=== PATIENT | female | born 1960 | race Caucasian/White ===

== ENCOUNTER → 2023-04-09 08:49 | Outpatient (CLI) | payer BC, SELFPAY ==
--- NOTE | 2023-04-09 08:51 | DI.RAD.S_ITS ---
PROCEDURE: FL BARIUM SWALLOW W SPEECH INDICATIONS: TONGUE CANCER / DYSPHAGIA COMPARISON: TECHNIQUE: Examination was conducted in conjunction with speech pathology per standard protocol. In the lateral projection, filming was performed of the patient swallowing. AP projection filming may also be performed with patient swallowing. COMPARISON: [facility], CT, CT SOFT TISSUE NECK WITH CONTRAST, 04/23/2022, 9:53. [facility], CT, CT ABDOMEN PELVIS WITH CONTRAST, 02/15/2023, 14:31. FINDINGS: Function: There is trace laryngeal penetration. Mild pathologic vallecular pooling. Morphology: No cricopharyngeal bar is identified. No cervical esophageal webs. No Zenker's diverticulum. No strictures. IMPRESSION: 1. Trace laryngeal penetration. Please see separate speech pathologist's report. Dictated by: Nitza Clement M.D. on 04/09/2023 at 13:25 Approved by: Nitza Clement M.D. on 04/09/2023 at 13:27
== END ==
LOC: RAD 08:49
PROVIDERS: Family Provider Internal Medicine Hematology & Oncology; PCP Internal Medicine Hematology & Oncology; Referring Provider Internal Medicine Hematology & Oncology; Visit Provider Internal Medicine Hematology & Oncology
DX: C02.9 Malignant neoplasm of tongue, unspecified (principal); R13.10 Dysphagia, unspecified
CPT/HCPCS: 74230

== ENCOUNTER 2023-04-16 09:00 | Outpatient (RCR) | payer BC, OTHER, MEDICAID, SELFPAY ==
--- NOTE | 2023-02-13 08:54 | ST.OPIE ---
Visit Care Team Role Provider Type Alfred Armas MD Attending Provider Physician Family Provider Primary Care Provider Referring Provider Specialty: Oncology Address: [address] [place] [address], [id number] Email: [email or web address] Speech-Language Pathology Initial Evaluation INSTRUCTOR OF SOCIOLOGY Adult Cognitive Linguistic Eval Start: 02/12/23 16:37 Freq: Status: Active Protocol: Document 02/13/23 08:06 RAJAN (Rec: 02/13/23 08:54 MA [id number]) Adult Cognitive Linguistic Evaluation Session Time Visit Start Time 11:45 Visit Stop Time 12:30 Total Visit Minutes 45 Visit Information Visit Number 1 Plan of Care Dates 02/12/23-04/14/22 Insurance Information Medicaid Referral Referring Provider Alfred Armas Reason for Referral Tongue cancer Setting Assessment Location Outpatient Care Visit Type Note Type Initial evaluation Next Note Type Next Note Type Treatment Note Patient Information Identification Type Name Patient History Pt is a 62 year old female seen this date for speech evaluation d/t 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 Oncology hx: About a year ago,December 2021, Pt presented with persisnt pain at the right lateral tongue, associated with otaglgia, speech and swallow difficulties, weight loss and developed right upper cervical lymphadenopathy. 01/05/22 Pt had right lateral tongue incisional biopsy- VM: invasive squamous cell carcinoma, well to moderately differentiated. 01/25/22 PET- CT: right FOM SUV 8.5 extending posteriorly and inferiorly and continuous with activity associated with 2.6 cm right level 1B node. There was adjacent right level 2A node 0.9 cm SUV 3.8, and 1/2cm left level 3 node SUV 5.1. No distant mets. 02/21/22 right partial glossectomy, right MND with [place], Dr. Sheila Del Rio ( left cervical lymphadenectomy was not done). Pt had radiation and chemo from -08/01/22. Pt reports she is in remission based on PET scan completed on 01/01/23. Pt with PMHx significant for: HTN, GERD. Pt lives with her . 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 Hearing Hearing Level Normal Vision Vision Status Not Impaired Previous Therapy Previous Speech-Language Therapy Yes History of Therapy Pt reports she received outpatient speech therapy at [facility]. However, reports she felt she was not making improvements and would like to do therapy closer to home. Subjective Patient Report Pt reports she would like to improve speech so she can do her job better as a customer experience manager d/t Pt having to talk 7-8 hours a day. Pt reports goal is to speak right. Pt states she practices tongue twisters and oral motor exercises when she thinks about it. She reports most difficulties producing words that begin with /s/. Pt reports most of her friends can understand her, however she does not think she sounds the same and her reports he can't understand her. Pt also reports difficulties with dry mouth. 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 Mental Status Alert,Responsive,Cooperative Assessment Oral Motor Examination Completed Yes Results Oral motor exam completed at time of evaluation. Pt with full dentures, however reports she only wears upper d/t increase speaking difficulties when wearing lowers. Pt WFL facial symmetry, reduced lingual protrusion, strength and ROM, WFL labial strength and ROM. Informal Assessment Receptive Language Normal Yes Expressive Language Normal Yes Pragmatic Language Normal Yes Speech Normal No Speech Impairment(s) Imprecise articulation Cognition Normal Yes Formal Assessment Results ST adminsitered Voice Handicap Index-10 (VHI-10) in order to assess Pt perceptions of speech. ST informed Pt to score VHI-10 with how she believes her speech sounds vs. voice and educated Pt on difference. Pt scored a total 43 indicating a severity rating of moderate. Pt scored the highest in the motional category in regards to speech perceptions and the lowest in functional. Pt reports she feels her speech makes her feel handicapped. and that her voice feels creaky and dry. Pt speech characterized by mis -articulations, specifically with /s/ and /c/ speech sounds which are produced with lisp/ slur. Pt appears about 95% intelligible. Findings/Results Findings Pt presents with mild-mod dysarthria R47.1. Pt with reduced lingual strength, protrusion and ROM impacting speech intelligibility. Pt with most difficulties producing words that being with /s/. Cognitive Communication Deficits Self-awareness of Cognitive- Predictive awareness (able to Communication Deficits predict problem; impact of impairments) Plan of Care Speech-Language Treatment Yes Frequency 1x/week Duration 8 weeks Patient/Caregiver Education Described results of evaluation,Patient expressed understanding of evaluation, Patient expressed agreement with goals and treatment plans Short Term Goals STG 1: Pt will participate in oral motor speech tasks to improve lingual and labial strength, ROM and motility for articulation with min cues. STG 2: Pt will articulate the sound of /s/ in all positions of words at the word/phrase/ sentence level with 80% accuracy independently. STG 3: Pt will utilize compensatory strategies of over articulation independently. STG 4:Pt will demonstrate speech intelligibility of about 100% in conversational speech. Director Of Public Relations Goals LTG 1:Pt will improve intelligibility of speech for functional communication.
--- NOTE | 2023-02-13 08:55 | ST.OPPOC ---
Physical, Occupational & Speech Therapy At 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 Oncology hx: About a year ago,December 2021, Pt presented with persisnt pain at the right lateral tongue, associated with otaglgia, speech and swallow difficulties, weight loss and developed right upper cervical lymphadenopathy. 01/05/22 Pt had right lateral tongue incisional biopsy- VM: invasive squamous cell carcinoma, well to moderately differentiated. 01/25/22 PET- CT: right FOM SUV 8.5 extending posteriorly and inferiorly and continuous with activity associated with 2.6 cm right level 1B node. There was adjacent right level 2A node 0.9 cm SUV 3.8, and 1/2cm left level 3 node SUV 5.1. No distant mets. 02/21/22 right partial glossectomy, right MND with [place], Dr. Sheila Del Rio (left cervical lymphadenectomy was not done) . Pt had radiation and chemo from 05/15/22-08/01/22 . Pt reports she is in remission based on PET scan completed on 01/01/23. Pt with PMHx significant for: HTN, GERD. Pt lives with her . 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 Self-awareness of Cognitive- Predictive awareness (abl Communication Deficits Short Term Goals STG 1: Pt will participate in oral motor speech tasks to improve lingual and labial strength, ROM and motility for articulation with min cues. STG 2: Pt will articulate the sound of /s/ in all positions of words at the word/phrase/ sentence level with 80% accuracy independently. STG 3: Pt will utilize compensatory strategies of over articulation independently. STG 4:Pt will demonstrate speech intelligibility of about 100% in conversational speech. Snf Goals LTG 1:Pt will improve intelligibility of speech for functional communication. Comment: Electronically Signed by: ROBERT Gale 02/13/23 0855 If you are in agreement with this Plan of Care, please return a signed and dated copy. I have reviewed this Plan of Care and certify that the skilled therapy services above are required to meet the patient?s needs. Physician Signature Date Printed Name and Credentials Clinical Instructor Signature Printed Name and Credentials
--- NOTE | 2023-02-27 17:27 | ST.OPTN ---
Visit Care Team Role Provider Type Alfred Armas MD Attending Provider Physician Family Provider Primary Care Provider Referring Provider Address: [address] [place] [address], [place], [address] HEEL COVERER MACHINE OPERATOR Treatment Note HEEL COVERER MACHINE OPERATOR Treatment Note Start: 02/27/23 17:03 Freq: Status: Active Protocol: Document 02/27/23 17:17 MA (Rec: 02/27/23 17:27 MA [id number]) Speech Pathology Treatment Note Session Time Visit Start Time 16:43 Visit Stop Time 17:30 Total Visit Minutes 47 Visit Information Visit Number 2 Plan of Care Dates 02/12/23-04/14/22 Setting Treatment Setting Outpatient Care Next Note Type Next Note Type Treatment Note General Information Patient History Pt is a 62 year old female seen this date for speech evaluation d/t 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 Oncology hx: About a year ago,December 2021, Pt presented with persisnt pain at the right lateral tongue, associated with otaglgia, speech and swallow difficulties, weight loss and developed right upper cervical lymphadenopathy. 01/05/22 Pt had right lateral tongue incisional biopsy- VM: invasive squamous cell carcinoma, well to moderately differentiated. 01/25/22 PET- CT: right FOM SUV 8.5 extending posteriorly and inferiorly and continuous with activity associated with 2.6 cm right level 1B node. There was adjacent right level 2A node 0.9 cm SUV 3.8, and 1/2cm left level 3 node SUV 5.1. No distant mets. 02/21/22 right partial glossectomy, right MND with [place], Dr. Sheila Del Rio ( left cervical lymphadenectomy was not done). Pt had radiation and chemo from -08/01/22. Pt reports she is in remission based on PET scan completed on 01/01/23. Pt with PMHx significant for: HTN, GERD. Pt lives with her . 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 Subjective Observations/Patient Presentation Pt arrived to therapy 13 minutes late d/t driving past facility. Objective Short Term Goals STG 1: Pt will participate in oral motor speech tasks to improve lingual and labial strength, ROM and motility for articulation with min cues. STG 2: Pt will articulate the sound of /s/ in all positions of words at the word/phrase/ sentence level with 80% accuracy independently. STG 3: Pt will utilize compensatory strategies of over articulation independently. STG 4:Pt will demonstrate speech intelligibility of about 100% in conversational speech. Fdc Goals LTG 1:Pt will improve intelligibility of speech for functional communication. Treatment Activities See below Assessment Assessment of Improvement Pt wore bottom dentures and reports she is trying to wear them more often in order to get used to speaking with them in. Pt reports she likes the way her face looks when she has them in. Pt with reduced speech intelligibility with bottoms dentures in, at about 85-90%. Pt reports she can only wear dentures for a few hours at a time d/t increase in neuropathy. Pt reports she practices oral motor exercises and tongue twisters at home taught by previous ST. Pt reports she will be returning to work tomorrow as a customer retention specialist where she will be talking most of the day. Pt reports she is ready but nervous. ST educated Pt on dysarthria speaking strategies to practice at home, as well as talking to customers on the phone at work, such as slow rate and over articulating. ST provided several education handouts for Pt to utilize at home and practice such as oral motor exercises, speaking strategies, functional phrases , and /th/ and /s/ words/ sentences. Reviewed with Patient Home Exercise Program
--- NOTE | 2023-03-12 16:14 | ST.OPTN ---
Visit Care Team Role Provider Type Alfred Armas MD Attending Provider Physician Family Provider Primary Care Provider Referring Provider Address: [address] [place] [address], [place], [address] TECHNOLOGY ASSISTANT Treatment Note TECHNOLOGY ASSISTANT Treatment Note Start: 02/27/23 17:03 Freq: Status: Active Protocol: Document 03/12/23 16:07 MA (Rec: 03/12/23 16:13 MA [id number]) Speech Pathology Treatment Note Session Time Visit Start Time 11:40 Visit Stop Time 12:20 Total Visit Minutes 40 Visit Information Visit Number 3 Plan of Care Dates 02/12/23-04/14/22 Setting Treatment Setting Outpatient Care Next Note Type Next Note Type Treatment Note General Information Patient History Pt is a 62 year old female seen this date for speech evaluation d/t 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 Oncology hx: About a year ago,December 2021, Pt presented with persisnt pain at the right lateral tongue, associated with otaglgia, speech and swallow difficulties, weight loss and developed right upper cervical lymphadenopathy. 01/05/22 Pt had right lateral tongue incisional biopsy- VM: invasive squamous cell carcinoma, well to moderately differentiated. 01/25/22 PET- CT: right FOM SUV 8.5 extending posteriorly and inferiorly and continuous with activity associated with 2.6 cm right level 1B node. There was adjacent right level 2A node 0.9 cm SUV 3.8, and 1/2cm left level 3 node SUV 5.1. No distant mets. 02/21/22 right partial glossectomy, right MND with [place], Dr. Sheila Del Rio ( left cervical lymphadenectomy was not done). Pt had radiation and chemo from -08/01/22. Pt reports she is in remission based on PET scan completed on 01/01/23. Pt with PMHx significant for: HTN, GERD. Pt lives with her . 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 Objective Short Term Goals STG 1: Pt will participate in oral motor speech tasks to improve lingual and labial strength, ROM and motility for articulation with min cues. STG 2: Pt will articulate the sound of /s/ in all positions of words at the word/phrase/ sentence level with 80% accuracy independently. STG 3: Pt will utilize compensatory strategies of over articulation independently. STG 4:Pt will demonstrate speech intelligibility of about 100% in conversational speech. Correction Goals LTG 1:Pt will improve intelligibility of speech for functional communication. Treatment Activities See below Assessment Assessment of Improvement Pt reported she did homework, which consisted on speaking and oral motor exercises. Pt repots difficulties producing str words. Pt wore full dentures to session. Pt reports friends and family have told her she sounds better. Pt also reports she will start talking on the phones at work on / Saturday this week where she is a customer experience consultant for [employer]. Pt reported she was nervous, however will utilize strategies taught in sessions, such as over articulation and slow rate. ST recommended Pt put a visual card on desk with speaking strategies written on them as reminders. ST assessed speech intelligibility and use of speaking strategies, specifically slow rate and over articulation with use of customer service scripts in order to promote carryover. Pt appeared about 100% intellgible with occasionally slurred speech. Pt benefited from mild cues to utilize over articulation. ST encouraged Pt to continue oral motor exercises and speaking exercises at home. Reviewed with Patient Home Exercise Program
--- NOTE | 2023-03-21 15:21 | ST.OPTN ---
Visit Care Team Role Provider Type Alfred Armas MD Attending Provider Physician Family Provider Primary Care Provider Referring Provider Address: [address] [place] [address], [place], [address] LEAN MANUFACTURING SPECIALIST Treatment Note LEAN MANUFACTURING SPECIALIST Treatment Note Start: 02/27/23 17:03 Freq: Status: Active Protocol: Document 03/21/23 15:08 MA (Rec: 03/21/23 15:21 MA [id number]) Speech Pathology Treatment Note Session Time Visit Start Time 14:35 Visit Stop Time 15:15 Total Visit Minutes 40 Visit Information Visit Number 4 Plan of Care Dates 02/12/23-04/14/22 Setting Treatment Setting Outpatient Care Next Note Type Next Note Type Treatment Note General Information Patient History Pt is a 62 year old female seen this date for speech evaluation d/t 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 Oncology hx: About a year ago,December 2021, Pt presented with persisnt pain at the right lateral tongue, associated with otaglgia, speech and swallow difficulties, weight loss and developed right upper cervical lymphadenopathy. 01/05/22 Pt had right lateral tongue incisional biopsy- VM: invasive squamous cell carcinoma, well to moderately differentiated. 01/25/22 PET- CT: right FOM SUV 8.5 extending posteriorly and inferiorly and continuous with activity associated with 2.6 cm right level 1B node. There was adjacent right level 2A node 0.9 cm SUV 3.8, and 1/2cm left level 3 node SUV 5.1. No distant mets. 02/21/22 right partial glossectomy, right MND with [place], Dr. Sheila Del Rio ( left cervical lymphadenectomy was not done). Pt had radiation and chemo from -08/01/22. Pt reports she is in remission based on PET scan completed on 01/01/23. Pt with PMHx significant for: HTN, GERD. Pt lives with her . 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 Subjective Observations/Patient Presentation Pt arrived to therapy about 5 minutes late d/t coming from work. Objective Short Term Goals STG 1: Pt will participate in oral motor speech tasks to improve lingual and labial strength, ROM and motility for articulation with min cues. STG 2: Pt will articulate the sound of /s/ in all positions of words at the word/phrase/ sentence level with 80% accuracy independently. STG 3: Pt will utilize compensatory strategies of over articulation independently. STG 4:Pt will demonstrate speech intelligibility of about 100% in conversational speech. Alf Goals LTG 1:Pt will improve intelligibility of speech for functional communication. Assessment Assessment of Improvement Pt reported she did homework, which consisted on speaking and oral motor exercises. She reports she has not started talking on the phones at work yet. She also reported she started taking 1800mg of gabapentin which is causing her dizziness. ST recommended Pt talk with doctor about gabapentin dose and dizziness. Pt with dentures in. She reports she has been practicing speaking exercises and oral motor exercises. Pt appeared 100% intelligible, however slight slurring. Pt completed 10 reps of oral motor exercises independently. Pt reports difficulties with swallowing and that her doctor sent over a referral yesterday for a swallow xray. ST communicated with radiology who did not yet receive an order. ST called Pt PCP who faxed order to radiology fax provided. ST to monitor when Pt has a MBSS scheduled and then proceed going forward with swallow therapy depending on results. Reviewed with Patient Home Exercise Program
--- NOTE | 2023-03-26 17:07 | ST.OPTN ---
Visit Care Team Role Provider Type Alfred Armas MD Attending Provider Physician Family Provider Primary Care Provider Referring Provider Address: [address] [place] [address], [place], [address] PRODUCTION QUALITY MANAGER Treatment Note PRODUCTION QUALITY MANAGER Treatment Note Start: 02/27/23 17:03 Freq: Status: Active Protocol: Document 03/26/23 17:02 MS (Rec: 03/26/23 17:07 MS [id number]) Speech Pathology Treatment Note Session Time Visit Start Time 14:15 Visit Stop Time 14:45 Total Visit Minutes 30 Visit Information Visit Number 5 Plan of Care Dates 02/12/23-04/14/22 Setting Treatment Setting Outpatient Care Next Note Type Next Note Type Treatment Note General Information Patient History Pt is a 62 year old female seen this date for speech evaluation d/t 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 Oncology hx: About a year ago,December 2021, Pt presented with persisnt pain at the right lateral tongue, associated with otaglgia, speech and swallow difficulties, weight loss and developed right upper cervical lymphadenopathy. 01/05/22 Pt had right lateral tongue incisional biopsy- VM: invasive squamous cell carcinoma, well to moderately differentiated. 01/25/22 PET- CT: right FOM SUV 8.5 extending posteriorly and inferiorly and continuous with activity associated with 2.6 cm right level 1B node. There was adjacent right level 2A node 0.9 cm SUV 3.8, and 1/2cm left level 3 node SUV 5.1. No distant mets. 02/21/22 right partial glossectomy, right MND with [place], Dr. Sheila Del Rio ( left cervical lymphadenectomy was not done). Pt had radiation and chemo from -08/01/22. Pt reports she is in remission based on PET scan completed on 01/01/23. Pt with PMHx significant for: HTN, GERD. Pt lives with her . 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 Subjective Observations/Patient Presentation Pt arrived to therapy early. Objective Short Term Goals STG 1: Pt will participate in oral motor speech tasks to improve lingual and labial strength, ROM and motility for articulation with min cues. STG 2: Pt will articulate the sound of /s/ in all positions of words at the word/phrase/ sentence level with 80% accuracy independently. STG 3: Pt will utilize compensatory strategies of over articulation independently. STG 4:Pt will demonstrate speech intelligibility of about 100% in conversational speech. Snf Goals LTG 1:Pt will improve intelligibility of speech for functional communication. Treatment Activities Education with speaking strategies and practice utilizing them during conversational task Assessment Assessment of Improvement Pt reported she saw her oncologist last week and will have a CT scan done at the end of April before her follow up with him 05/02/23. 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 She reports she is nervous. ST educated Pt to utilize speaking strategies taught and practiced in therapy, such as over articulation, slow rate and ensuring she was understood and asking if she needs to repeat herself. Pt with dentures in. She reports she did not practice speaking exercises and oral motor exercises this past week d/t the holiday and being busy. Pt appeared >90% intelligible, however slight slurring. ST assessed use of speaking strategies, such as over articulation during structure conversational task in order to promote carryover. Pt utilized speaking strategies about 80% of the time requiring mild verbal cues. ST encouraged Pt to continue exercises at home. Reviewed with Patient Home Exercise Program
--- NOTE | 2023-04-04 09:46 | ST.OPTN ---
Visit Care Team Role Provider Type Alfred Armas MD Attending Provider Physician Family Provider Primary Care Provider Referring Provider Address: [address] [place] [address], [place], [address] LINER HELPER Treatment Note LINER HELPER Treatment Note Start: 02/27/23 17:03 Freq: Status: Active Protocol: Document 04/04/23 09:42 MA (Rec: 04/04/23 09:46 MA [id number]) Speech Pathology Treatment Note Session Time Visit Start Time 09:00 Visit Stop Time 09:40 Total Visit Minutes 40 Visit Information Visit Number 6 Plan of Care Dates 02/12/23-04/14/22 Setting Treatment Setting Outpatient Care Next Note Type Next Note Type Treatment Note General Information Patient History Pt is a 62 year old female seen this date for speech evaluation d/t 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 Oncology hx: About a year ago,December 2021, Pt presented with persisnt pain at the right lateral tongue, associated with otaglgia, speech and swallow difficulties, weight loss and developed right upper cervical lymphadenopathy. 01/05/22 Pt had right lateral tongue incisional biopsy- VM: invasive squamous cell carcinoma, well to moderately differentiated. 01/25/22 PET- CT: right FOM SUV 8.5 extending posteriorly and inferiorly and continuous with activity associated with 2.6 cm right level 1B node. There was adjacent right level 2A node 0.9 cm SUV 3.8, and 1/2cm left level 3 node SUV 5.1. No distant mets. 02/21/22 right partial glossectomy, right MND with [facility], Dr. Sheila Del Rio ( left cervical lymphadenectomy was not done). Pt had radiation and chemo from -08/01/22. Pt reports she is in remission based on PET scan completed on 01/01/23. Pt with PMHx significant for: HTN, GERD. Pt lives with her . 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 Subjective Observations/Patient Presentation Pt arrived to therapy on time. Objective Short Term Goals STG 1: Pt will participate in oral motor speech tasks to improve lingual and labial strength, ROM and motility for articulation with min cues. STG 2: Pt will articulate the sound of /s/ in all positions of words at the word/phrase/ sentence level with 80% accuracy independently. STG 3: Pt will utilize compensatory strategies of over articulation independently. STG 4:Pt will demonstrate speech intelligibility of about 100% in conversational speech. Costume Draper Goals LTG 1:Pt will improve intelligibility of speech for functional communication. Treatment Activities Education with speaking strategies and practice utilizing them during conversational task Assessment Assessment of Improvement Pt reports she will start communicating on the phones at work as a customer marketing assistant on 04/10/23. She reports she is nervous. ST educated Pt to utilize speaking strategies taught and practiced in therapy, such as over articulation, slow rate and ensuring she was understood and asking if she needs to repeat herself. She says she has been focusing on slow rate and is going to set a time every day to do speech exercises. Pt with bottom dentures in. She reports she would like to wear them, however causes pain /discomfort. Pt appears about >90% intelligible, however slight slurring without dentures. ST assessed use of speaking strategies, such as over articulation during structure conversational task in order to promote carryover. Pt utilized speaking strategies about 90% of the time requiring mild verbal cues. ST communicated recommendation to change therapy to every other week d/ t Pt able to complete and utilize speaking strategies and exercises at home. Pt reports she would like to continue speech therapy to keep practicing exercises. Pt reports she has no heard about scheduling a swallow evaluation. ST to f/u with Pt referring MD. ST encouraged Pt to continue exercises at home . Reviewed with Patient Home Exercise Program
--- NOTE | 2023-04-09 10:00 | ST.SWALLOW ---
Visit Care Team Role Provider Type Alfred Armas MD Attending Provider Physician Family Provider Primary Care Provider Referring Provider Specialty: Oncology Address: [address] [place] [address], [id number] Email: [email or web address] Modified Barium Swallow Study OVEN HEATER HELPER Modified Barium Swallow Study Start: 04/10/23 13:31 Freq: Status: Active Protocol: Document 04/09/23 13:31 CG (Rec: 04/10/23 13:43 CG [id number]) Modified Barium Swallow Study Total Time Visit Start Time 09:05 Visit Stop Time 09:40 Total Visit Minutes 35 Patient Information Patient History Pt is a 62 year old female seen this date for Modified Barium Swallow Study d/t s/sx oral dysphagia secondary to hx of tongue cancer. Oncology hx: About a year ago, December 2021, Pt presented with persistent pain at the right lateral tongue, associated with otalgia, speech and swallow difficulties, weight loss and developed right upper cervical lymphadenopathy. 01/05/22 Pt had right lateral tongue incisional biopsy- VM: invasive squamous cell carcinoma, well to moderately differentiated. 01/25/22 PET- CT: right FOM SUV 8.5extending posteriorly and inferiorly and continuous with activity associated with 2.6 cm right level 1B node. There was adjacent right level 2A node 0.9 cm SUV 3.8, and 1/2cm left level 3 node SUV 5.1. No distant mets. 02/21/22 right partial glossectomy, right MND with [facility], Dr. Sheila Del Rio ( left cervical lymphadenectomy was not done). Pt had radiation and chemo from -08/01/22. Pt reports she is in remission based on PET scan completed on 01/01/23. Pt with PMHx significant for: HTN, GERD. Pt lives with her . 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 The pt (who goes by Ny) reported oral dysphagia symptoms included difficulty propeling anything within her oral cavity. Upon oral motor examination, the pt has very limited movement of her tongue . In order to move food to the back of her mouth, she states that she sometimes uses her finger to push the food back. 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 She states that she often has to swallow 4-5 times to get any solids down, particularly anything dry or any meats. She also reports that sometimes when she drinks liquids, it feels like they are going into her nasal passages. The pt is currently receiving speech therapy at this facility with the goal of increasing intelligibility. Treating OVEN HEATER HELPER recommended MBS to assess for need for dysphagia treatment. Patient Positioning Position View Lat-A/P Imaging Lateral View Textures Administered Trials Presented Thin Liquid via Spoon (IDDSI 0 ),Thin Liquid via Cup (IDDSI 0 ),Mildly Thick Liquid via Spoon (IDDSI 2),Mildly Thick Liquid via Cup (IDDSI 2), Extremely Thick Liquid via Spoon (IDDSI 4),Regular (IDDSI 7) Barium Tablet Yes The IDDSI Framework Protocol: IDDSI.1 Oral Impairment Source: The Modified Barium Swallow Impairment Profile (MBSImP??) Lip Closure Interlabial escape; no progression to anterior lip Tongue Control During Bolus Hold Escape to lateral buccal cavity/floor of mouth (FOM) Bolus Preparation/Mastication Disorganized chewing/mashing with solid pieces of bolus unchewed Bolus Transport/Lingual Motion Slowed tongue motion Oral Residue Minimal to no clearance Location Palate,Tongue,Lateral sulci Initiation of Pharyngeal Swallow Bolus head at pyriforms Additional Oral Impairment Observations During bolus hold, lingual control is reduced, resulting in spillage of the bolus to the lateral sulcci. Additionally, there was premature posterior bolus loss to the level of the vallecula during consecutive trials of thin liquids. A-P lingual motion was slowed, weak, and disorganized, though not repetitive (no repetitive tongue pumping noted). The pt had significant difficulty propelling the pudding/paste consistency posteriorly and was ultimately unable to do so without a liquid wash to thin the bolus. She also demonstrated extreme difficulty propelling the solid (cookie) bolus and required multiple swallows to move the bolus to the pharynx. Mastication was disorganized and pt demonstrated difficulty with re-collection of the bolus. Oral residue was present throughout the oral cavity after the swallow, with the majority of the bolus remaining after the initial swallow on pudding and solid boluses. Initiation of the pharyngeal swallow was delayed on large liquid boluses, with bolus head in the pyriforms prior to the first brisk anterior movement of the hyoid bone. Functional implications: Pt may benefit from moistened or liquid diet due to difficulty with bolus propulsion. Additionally, she may consider continuing strategy of using finger to push masticated bolus posteriorly. Hard solids are not recommended due to impairments in mastication and lingual propulsion. Additionally, swallow delay on large bolus suggests use of small sip strategy to reduce premature spillage prior to the swallow. Pharyngeal Impairment Source: The Modified Barium Swallow Impairment Profile (MBSImP??) Soft Palate Elevation Escape to nasopharynx Laryngeal Elevation Part.sup.move.thyroid cart/ part.approx.arytenoids to epiglot.petiole Anterior Hyoid Excursion Partial anterior movement Epiglottic Movement No inversion Laryngeal Vestibular Closure Incomplete; narrow column air/ contrast in laryngeal vestibule Pharyngeal Stripping Wave Present - diminished Pharyngoesophageal Segment Opening Partial distention/partial duration; partial obstruction of flow Tongue Base Retraction Wide column of contrast/air betwn tongue base & post. pharyngeal wall Pharyngeal Residue Collection of residue within/ on pharyngeal structures Additional Pharyngeal Impairment During large bolus trials of Observations thin, there is escape from the oropharynx to the nasopharynx at the end of the swallow. This appears to be a result of limited tongue base retraction which results in excessive residue at the tongue base just anterior and inferior to the soft palate. When the soft palate relaxes after the swallow, this residue moves into the nasopharynx. During the early swallow, there is reduced laryngeal elevation which results in contrast entering into the laryngeal vestibule, reaching a level just superior to the vocal folds. This is evident during larger boluses of thin liquid. Trials of chin tuck with thin liquid appeared to accomodate for reduced laryngeal elevation by increasing approximation of arytenoids to the epiglotic petiole during the early swallow, which reduced the amount of bolus entering the laryngeal vestibule. Epiglottic inversion is absent across liquid and pudding bolus trials, and inversion on solid trial is minimal. This not only contributes to excessive vallecular residue, but also decreases laryngeal vestibule closure and reduces airway protection. During trials of large boluses of thin liquids, laryngeal vestibule closure at the height of the swallow is incomplete, resulting in penetration to the level of the vocal folds. Bolus contacting the vocal folds did trigger a cough response in 1 /2 instances. (PAS 4 - Material enters the airway, contacts the vocal folds, and is ejected from the airway and PAS 5 - Material enters the airway, contacts the vocal folds, and is not ejected from the airway). PES opening demonstrated reduced duration which results in obstruction of bolus flow. In one instance, this appears to contribute to pharyngeal residue which then enters the nasopharynx after the swallow. Tongue base retraction is moderately reduced, contributing to lack of epiglottic inversion and excessive pharyngeal residue in the valleculae. Lingual weakness appears to be a significant underlying factor which cascades to multiple pharyngeal impairments. Functional implications: Based on limited epiglottic inversion and subsequent reduced laryngeal vestibule closure, the pt is at risk of aspiration of thin liquids. Chin tuck trials resulted in increased laryngeal vestibule closure; therefore, a chin tuck is recommended as a compensatory strategy for swallows of thin liquid. Additionally, the pt demonstrated significant pharyngeal residue, particularly on larger bolus trials, which resulted in escape to the nasopharynx. Small sips/bolus volume limitation is indicated in order to decrease risk of excessive residue escaping to nasopharynx. Reduced tongue base retraction and overall lingual weakness (2/ partial glossectomy) appear to be underlying factors creating cascading impairments throughout the swallow. Tongue base exercises are therefore warranted as a rehabilitative strategy. A/P View The IDDSI Framework Protocol: IDDSI.1 A/P View Observations Esophageal Clearance Upright Position Esophageal retention w/ regtrograde flow below pharyngoesoph segment Esophageal Function Slowed Clearing,Stasis Additional A-P Observations Esophageal retention of contrast material is present, particularly in the area of the aortic arch. During barium tablet trial, the tablet remained static above the aortic arch after the first swallow. It then briefly demonstrated retrograde movement before being pushed through the esophagus with a secondary swallow. The pharynx was not adequately visualized in AP view to make a determination about pharyngeal contraction. Clinical Impressions Dysphagia Type Oral,Pharyngeal,Esophageal Findings The patient presents with moderate dysphagia characterized by deficits in the oral, pharyngeal, and esophageal phase of the swallow. Specifically, the pt demonstrates global impairments in physiological functions requiring lingual movement and coordination, secondary to partial glossectomy and radiation of the oral cavity. The pt does present as a moderate aspiration risk, particularly with large boluses of thin liquids. Airway protection was increased by a chin tuck. Based on this swallow study, the following are recommended: 1. Chin tuck for all swallows of thin liquids (until another instrumental assessment demonstrates adequate airway protection without chin tuck). 2. Small sips of thin liquids, one at a time. 3. Minced and moist (IDDSI 5) solids. 4. Used finger or spoon to help transport solid boluses posteriorly in the oral cavity . 5. Outpatient dysphagia treatment with an emphasis on exercises to strengthen tongue base retraction and facilitate epiglottic inversion as well as stengthen oral tongue for A-P bolus propulsion. 6. Consider GI consult based on s/sx esophageal dysphagia ( i.e. esophageal retention). Rehabilitation Potential Fair Patient Appropriate for Therapy Yes Recommendations Diet Liquids Order Thin (IDDSI 0) Diet Order Minced & Moist (IDDSI 5) Medication Recommendation As Tolerated Comments Thin with chin tuck Additional Dietary Needs Single Sips,Controlled Sips, Reminders to Use Strategies Aspiration Precautions Recommended Precautions Small Bites/Sips,Chin Tuck Treatment Plan Therapy Recommendations Outpatient Speech Therapy,Oral Motor Exercises,Base of Tongue Exercises Recommended Referrals GI Consult Therapy Strategy Recommendations Sitting Upright (90 deg),Chin Tuck,Small Bites and Sips
--- NOTE | 2023-04-16 09:45 | ST.OPTN ---
Visit Care Team Role Provider Type Alfred Armas MD Attending Provider Physician Family Provider Primary Care Provider Referring Provider Address: [address] [place] [address], [place], [address] TITLE I PARAPROFESSIONAL Treatment Note TITLE I PARAPROFESSIONAL Treatment Note Start: 02/27/23 17:03 Freq: Status: Active Protocol: Document 04/16/23 09:25 MA (Rec: 04/16/23 09:45 MA [id number]) Speech Pathology Treatment Note Session Time Visit Start Time 09:15 Visit Stop Time 09:45 Total Visit Minutes 30 Visit Information Visit Number 7 Plan of Care Dates 02/12/23-04/14/22 Setting Treatment Setting Outpatient Care Next Note Type Next Note Type Treatment Note General Information Patient History Pt is a 62 year old female seen this date for Modified Barium Swallow Study d/t s/sx oral dysphagia secondary to hx of tongue cancer. Oncology hx: About a year ago, December 2021, Pt presented with persistent pain at the right lateral tongue, associated with otalgia, speech and swallow difficulties, weight loss and developed right upper cervical lymphadenopathy. 01/05/22 Pt had right lateral tongue incisional biopsy- VM: invasive squamous cell carcinoma, well to moderately differentiated. 01/25/22 PET- CT: right FOM SUV 8.5extending posteriorly and inferiorly and continuous with activity associated with 2.6 cm right level 1B node. There was adjacent right level 2A node 0.9 cm SUV 3.8, and 1/2cm left level 3 node SUV 5.1. No distant mets. 02/21/22 right partial glossectomy, right MND with Guero, Dr. Sheila Del Rio ( left cervical lymphadenectomy was not done). Pt had radiation and chemo from -08/01/22. Pt reports she is in remission based on PET scan completed on 01/01/23. Pt with PMHx significant for: HTN, GERD. Pt lives with her . 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 The pt (who goes by Ny) reported oral dysphagia symptoms included difficulty propeling anything within her oral cavity. Upon oral motor examination, the pt has very limited movement of her tongue . In order to move food to the back of her mouth, she states that she sometimes uses her finger to push the food back. 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 She states that she often has to swallow 4-5 times to get any solids down, particularly anything dry or any meats. She also reports that sometimes when she drinks liquids, it feels like they are going into her nasal passages. The pt is currently receiving speech therapy at this facility with the goal of increasing intelligibility. Treating TITLE I PARAPROFESSIONAL recommended MBS to assess for need for dysphagia treatment. Subjective Observations/Patient Presentation Pt arrived to therapy late. Objective Short Term Goals STG 1: Pt will participate in oral motor speech tasks to improve lingual and labial strength, ROM and motility for articulation with min cues. STG 2: Pt will articulate the sound of /s/ in all positions of words at the word/phrase/ sentence level with 80% accuracy independently. STG 3: Pt will utilize compensatory strategies of over articulation independently. STG 4:Pt will demonstrate speech intelligibility of about 100% in conversational speech. Fpc Goals LTG 1:Pt will improve intelligibility of speech for functional communication. Treatment Activities Education with speaking strategies and practice utilizing them during conversational task Assessment Assessment of Improvement Pt reports she started talking on the phones at work and is talking to about 3 customers a day. She states she is allocated 15 minutes after calls to rest d/t getting tired out from talking so much . She states nobody has said they can't understand her and she is utilizing her speaking strategies. Pt not wearing bottom dentures this date with increased speech intelligibility. She reports she is looking into getting dentures fitted properly. ST briefly reviewed MBS with her d/t Pt request. ST educated Pt that further information will be provided in regards to swallowing once swallow referral is in. ST called Pt referring doctor requesting referral for swallow evaluation for outpatient speech. Pt with bottom dentures in. She reports she would like to wear them, however causes pain /discomfort. Pt appears about >90% intelligible, however slight slurring without dentures. ST assessed use of speaking strategies, such as over articulation during structure conversational task in order to promote carryover. Pt utilized speaking strategies about 90% of the time requiring mild verbal cues. ST communicated recommendation to change therapy to every other week d/ t Pt able to complete and utilize speaking strategies and exercises at home. Pt reports she would like to continue speech therapy to keep practicing exercises. Pt reports she has no heard about scheduling a swallow evaluation. ST to f/u with Pt referring MD. ST encouraged Pt to continue exercises at home . ST assessed use of speaking strategies, such as over articulation during structure conversational task in order to promote carryover. Pt utilized speaking strategies about 100% of the time requiring mild verbal cues. Reviewed with Patient Home Exercise Program
--- NOTE | 2023-07-24 08:57 | ST.OPDS ---
Visit Care Team Role Provider Type Alfred Armas MD Attending Provider Physician Family Provider Primary Care Provider Referring Provider Address: [address] [place] [address], [place], [address] MONKEY KEEPER Treatment Note MONKEY KEEPER Treatment Note Start: 02/27/23 17:03 Freq: Status: Active Protocol: Document 04/16/23 09:25 MA (Rec: 04/16/23 09:45 MA [id number]) Speech Pathology Treatment Note Session Time Visit Start Time 09:15 Visit Stop Time 09:45 Total Visit Minutes 30 Visit Information Visit Number 7 Plan of Care Dates 02/12/23-04/14/22 Setting Treatment Setting Outpatient Care Next Note Type Next Note Type Treatment Note General Information Patient History Pt is a 62 year old female seen this date for Modified Barium Swallow Study d/t s/sx oral dysphagia secondary to hx of tongue cancer. Oncology hx: About a year ago, December 2021, Pt presented with persistent pain at the right lateral tongue, associated with otalgia, speech and swallow difficulties, weight loss and developed right upper cervical lymphadenopathy. 01/05/22 Pt had right lateral tongue incisional biopsy- VM: invasive squamous cell carcinoma, well to moderately differentiated. 01/25/22 PET- CT: right FOM SUV 8.5extending posteriorly and inferiorly and continuous with activity associated with 2.6 cm right level 1B node. There was adjacent right level 2A node 0.9 cm SUV 3.8, and 1/2cm left level 3 node SUV 5.1. No distant mets. 02/21/22 right partial glossectomy, right MND with [facility]ero, Dr. Sheila Del Rio ( left cervical lymphadenectomy was not done). Pt had radiation and chemo from -08/01/22. Pt reports she is in remission based on PET scan completed on 01/01/23. Pt with PMHx significant for: HTN, GERD. Pt lives with her . 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 The pt (who goes by Ny) reported oral dysphagia symptoms included difficulty propeling anything within her oral cavity. Upon oral motor examination, the pt has very limited movement of her tongue . In order to move food to the back of her mouth, she states that she sometimes uses her finger to push the food back. 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 She states that she often has to swallow 4-5 times to get any solids down, particularly anything dry or any meats. She also reports that sometimes when she drinks liquids, it feels like they are going into her nasal passages. The pt is currently receiving speech therapy at this facility with the goal of increasing intelligibility. Treating MONKEY KEEPER recommended MBS to assess for need for dysphagia treatment. Subjective Observations/Patient Presentation Pt arrived to therapy late. Objective Short Term Goals STG 1: Pt will participate in oral motor speech tasks to improve lingual and labial strength, ROM and motility for articulation with min cues. STG 2: Pt will articulate the sound of /s/ in all positions of words at the word/phrase/ sentence level with 80% accuracy independently. STG 3: Pt will utilize compensatory strategies of over articulation independently. STG 4:Pt will demonstrate speech intelligibility of about 100% in conversational speech. [facility]ci Goals LTG 1:Pt will improve intelligibility of speech for functional communication. Treatment Activities Education with speaking strategies and practice utilizing them during conversational task Assessment Assessment of Improvement Pt reports she started talking on the phones at work and is talking to about 3 customers a day. She states she is allocated 15 minutes after calls to rest d/t getting tired out from talking so much . She states nobody has said they can't understand her and she is utilizing her speaking strategies. Pt not wearing bottom dentures this date with increased speech intelligibility. She reports she is looking into getting dentures fitted properly. ST briefly reviewed MBS with her d/t Pt request. ST educated Pt that further information will be provided in regards to swallowing once swallow referral is in. ST called Pt referring doctor requesting referral for swallow evaluation for outpatient speech. Pt with bottom dentures in. She reports she would like to wear them, however causes pain /discomfort. Pt appears about >90% intelligible, however slight slurring without dentures. ST assessed use of speaking strategies, such as over articulation during structure conversational task in order to promote carryover. Pt utilized speaking strategies about 90% of the time requiring mild verbal cues. ST communicated recommendation to change therapy to every other week d/ t Pt able to complete and utilize speaking strategies and exercises at home. Pt reports she would like to continue speech therapy to keep practicing exercises. Pt reports she has no heard about scheduling a swallow evaluation. ST to f/u with Pt referring MD. ST encouraged Pt to continue exercises at home . ST assessed use of speaking strategies, such as over articulation during structure conversational task in order to promote carryover. Pt utilized speaking strategies about 100% of the time requiring mild verbal cues. Reviewed with Patient Home Exercise Program Above is the last treatment note with patient. She did not return to therapy.
== END 2023-08-01 14:21 ==
LOC: SP 09:00
PROVIDERS: Family Provider Internal Medicine Hematology & Oncology; PCP Internal Medicine Hematology & Oncology; Referring Provider Internal Medicine Hematology & Oncology; Visit Provider Internal Medicine Hematology & Oncology
DX: C02.9 Malignant neoplasm of tongue, unspecified (principal)
CPT/HCPCS: 92507; 92523; 92611